=== PATIENT | female | born 1985 | race Caucasian/White ===

== ENCOUNTER 2016-04-26 08:00 | Emergency (ER) | payer OTHER ==
--- NOTE | ~2016-04-26 | CR181 ---
[facility] A Service of [facility] & [facility] RADIOLOGY TEXT RESULTS PATIENT: BRIONNA OLIVIA LOCATION: [facility] : 89 UNIT #: [id number] AGE: [address]: Kimberlyn Harry SEX: F ORDER DR: [id number] [id number] [facility]. [place], [place] [address] [id number] E MR#: [id number] Acc #: [id number] NAME: BRIONNA OLIVIA. : 1985 SEX: F STUDY DATE/TIME: 04/26/2016 7:32 UNIT: [facility] ROOM: STUDY DESCRIPTION: CR Lumbar Spine 2 or 3 Views Attending Physician: Kimberlyn Harry Pa-C Ordering Physician: Kimberlyn Harry Pa-C Primary Care Physician: No Primary Care Physician MEDICAL IMAGING REPORT This report is preliminary unless electronic signature is present EXAM Lumbar spine 3-view series INDICATIONS Low-back pain and left hip pain since this morning after falling down stairs. FINDINGS AP and lateral projections of the lumbar segment show good mineralization of both anterior and posterior elements. They are all anatomically normal without indication of fracture, dislocation, or malignant change of a sclerotic or lytic type. There is no congenital defect noted. The sacroiliac joints are normal. IMPRESSION Normal lumbar spine. Dictated by... Fidencio Petersen M.D. THIS IS AN ELECTRONICALLY VERIFIED REPORT Fidencio Petersen M.D. at 04/26/2016 4:12 PM FEL/di TD: 04/26/2016 13:26 JOB #: [id number] MEDICAL IMAGING REPORT COPY
--- NOTE | ~2016-04-26 | CR150 ---
[facility] A Service of [facility] & [facility] RADIOLOGY TEXT RESULTS PATIENT: BRIONNA OLIVIA LOCATION: [facility] : 89 UNIT #: [id number] AGE: [address]: Kimberlyn Harry SEX: F ORDER DR: [id number] [facility] [address] [facility]. [place], [place] [address] [id number] E MR#: [id number] Acc #: [id number] NAME: BRIONNA OLIVIA. : 1985 SEX: F STUDY DATE/TIME: 04/26/2016 7:32 UNIT: [facility] ROOM: STUDY DESCRIPTION: CR Hip Min 2 Views Lt Attending Physician: Kimberlyn Harry Pa-C Ordering Physician: Kimberlyn Harry Pa-C Primary Care Physician: Primary Care Physician No MEDICAL IMAGING REPORT This report is preliminary unless electronic signature is present EXAM Left hip 04/26/2016. [facility] HISTORY 30-year-old woman pain low back and left hip following a fall down stairs this morning. AP pelvis with frog-leg lateral view of the left hip demonstrates intact cortex throughout with no fracture. Sacroiliac joints are preserved and symmetrical. There is no symphysis separation. Mineralization is preserved. Hip joints are maintained. Soft tissues appear normal. IMPRESSION Negative left hip. The pelvis appears unremarkable. Dictated by... Jorge Gillette M.D. THIS IS AN ELECTRONICALLY VERIFIED REPORT Jorge Gillette M.D. at 04/26/2016 1:33 PM ADRIENNE/hansa TD: 04/26/2016 13:31 JOB #: [id number] MEDICAL IMAGING REPORT COPY
[~2016-04-26 08:00] MED LIST: AUGMENTIN PO; DOXYCYCLINE; FLEXERIL PO; KEFLEX500 MG; KEFLEX500 MG PO; KETOPROFEN PO; MACROBID100 MG PO; NO MEDICATIONS; PHENERGAN PO; PHENERGAN25 MG PO; PRENATAL VITAMI1 TA3 PO; PRENATAL1 TA1 PO; VICODIN 5/1 TAB 5/50 PO; ZOFRAN8 MG PO
== END 2016-04-26 08:54 | disposition home or self-care (01) ==
LOC: CED 08:00
DX: S39.012A Strain of muscle, fascia and tendon of lower back, initial encounter (principal); S70.02XA Contusion of left hip, initial encounter; F32.9 Major depressive disorder, single episode, unspecified; F17.210 Nicotine dependence, cigarettes, uncomplicated; Z88.2 Allergy status to sulfonamides; Z88.8 Allergy status to other drugs, medicaments and biological substances; W10.9XXA Fall (on) (from) unspecified stairs and steps, initial encounter; Y92.009 Unspecified place in unspecified non-institutional (private) residence as the place of occurrence of the external cause
CPT/HCPCS: 72100; 73502; 84703; 99284; J1885

== ENCOUNTER 2016-07-14 16:32 | Emergency (ER) | payer OTHER ==
--- NOTE | ~2016-07-14 | EKG ---
PATIENT: BRIONNA OLIVIA UNIT #: [id number] Ventricular Rate: 95 BPM Atrial Rate: 95 BPM P-R Interval: 134 ms QRS Duration: 64 ms Q-T Interval: 342 ms QTC Calculation(Bezet): 429 ms P [place]: 75 degrees Calculated R [place]: 72 degrees Calculated T [place]: 63 degrees Diagnosis Line: Normal sinus rhythm Diagnosis Line: Low voltage QRS Diagnosis Line: Borderline ECG Diagnosis Line: No previous ECGs available Diagnosis Line: Confirmed by ORION HARDY MD ([id number]) on Diagnosis Line: 07/15/2016 1:49:17 PM INTERPRETING MD: JB
[2016-07-14 17:17] LABS: BASOPHIL# 0.1 X10e3 (0-0.3); BASOPHIL% 0.6 % (0-2.5); EOSINOPHIL# 0.3 X10e3 (0-0.7); EOSINOPHIL% 2.7 % (0.0-7.0); HEMATOCRIT 41.6 % (35.0-45.0); HEMOGLOBIN 13.8 gm/dL (12.0-16.0); LYMPHOCYTE# 3.5 X10e3 (1.0-3.5); LYMPHOCYTE% 28.1 % (17.0-45.0); MEAN CELL VOLUME 86.3 FL (83-96); MEAN CORPUSCULAR HEMOGLOBIN 28.7 PG (28-34); MEAN CORPUSCULAR HGB CONC 33.2 g/dL (30-36); MEAN PLATELET VOLUME 8.2 FL (6.5-11.5); MONOCYTE# 0.7 X10e3 (0-1.0); MONOCYTE% 5.7 % (3.0-12.0); NEUTROPHIL# 7.8 X10e3 (1.5-7.1); NEUTROPHIL% 62.9 % (40-75); PLATELET COUNT 292 X10e3 (140-420); RED BLOOD COUNT 4.82 X10e (3.90-5.30); RED CELL DISTRIBUTION WIDTH 14.8 % (11.0-15.5); WHITE BLOOD COUNT 12.4 X10e3 (4.0-10.5)
[2016-07-14 17:20] LABS: DIFF IND NO
[2016-07-14 17:30] LABS: BILIRUBIN, DIRECT 0.1 mg/dL (0.0-0.2); BILIRUBIN,INDIRECT 0.4 mg/dL (0.0-0.9); BILIRUBIN,TOTAL 0.5 mg/dL (0.2-2.0); BUN/CREATININE RATIO 16.66; CALCIUM SERUM 9.2 mg/dL (8.4-10.2); CREATININE SERUM 0.6 mg/dL (0.6-1.4); GLOM FILT RATE Estimated 123.2 mL/min (>60); POTASSIUM 3.6 mmol/L (3.5-5.1); PROTEIN TOTAL SERUM 7.3 g/dL (6.0-8.3)
[2016-07-14 17:40] LABS: POC - CKMB <1.0 ng/mL (0.0-7.9); POC - TROPONIN <0.05 ng/mL (<=0.05)
[2016-07-14 18:00] LABS: URINE SOURCE CLEAN CATCH
[2016-07-14 18:14] LABS: URINE APPEARANCE CLOUDY; URINE BILIRUBIN NEG (NEG); URINE BLOOD NEG (NEG); URINE COLOR YELLOW; URINE GLUCOSE NEG (NEG); URINE KETONE NEG (NEG); URINE LEUKOCYTE ESTERASE NEG (NEG); URINE NITRATE NEG (NEG); URINE PH 7.5 (5-8); URINE PROTEIN NEG (NEG)
[2016-07-14 18:34] LABS: CULTURE INDICATED? NO
[2016-07-14 19:14] LABS: POC - CKMB <1.0 ng/mL (0.0-7.9); POC - TROPONIN <0.05 ng/mL (<=0.05)
== END 2016-07-14 20:18 | disposition home or self-care (01) ==
LOC: CED 16:32
PROVIDERS: Emergency Medicine
DX: R51 Headache (principal); Z79.899 Other long term (current) drug therapy
CPT/HCPCS: 36415; 80048; 80076; 81003; 82553; 84484; 84703; 85025; 93005; 96361; 96374; 96375; 99284; J0780; J1885; J2930

== ENCOUNTER 2016-07-27 22:39 | Emergency (ER) | payer OTHER ==
--- NOTE | ~2016-07-27 | CR142 ---
[facility] A Service of [facility] & [facility] RADIOLOGY TEXT RESULTS PATIENT: BRIONNA OLIVIA LOCATION: [facility] : 89 UNIT #: [id number] AGE: [address]: Lavelle Amaral SEX: F ORDER DR: [id number] [facility] [address] [facility]. [place], [place] [address] [id number] E MR#: [id number] Acc #: [id number] NAME: BRIONNA OLIVIA. : 1985 SEX: F STUDY DATE/TIME: 07/27/2016 22:54 UNIT: [facility] ROOM: STUDY DESCRIPTION: CR Hand Min 3 Views Rt Attending Physician: Lavelle Amaral P.A.-C. Ordering Physician: Lavelle Amaral P.A.-C. [facility] RE[facility] This report is preliminary unless electronic signature is present EXAM Right hand. INDICATIONS Pain after punching wall, 07/26/16. FINDINGS AP, lateral, and oblique projections of the hand show good mineralization with normal carpal, metacarpal, and phalangeal anatomy without indication of fracture, dislocation, or soft tissue radiopaque foreign body. IMPRESSION Normal right hand. Dictated by... Fidencio Petersen M.D. THIS IS AN ELECTRONICALLY VERIFIED REPORT Fidencio Petersen M.D. at 07/28/2016 2:12 AM MOE/donny TD: 07/27/2016 23:33 JOB #: [id number] MEDICAL IMAGING REPORT Page 1 of 1 COPY
== END 2016-07-27 23:41 | disposition home or self-care (01) ==
LOC: CED 22:39 → CFTX 22:39
DX: S60.221A Contusion of right hand, initial encounter (principal); F17.210 Nicotine dependence, cigarettes, uncomplicated; Z88.2 Allergy status to sulfonamides; Z88.8 Allergy status to other drugs, medicaments and biological substances; W22.8XXA Striking against or struck by other objects, initial encounter; Y92.009 Unspecified place in unspecified non-institutional (private) residence as the place of occurrence of the external cause
CPT/HCPCS: 73130; 99283

== ENCOUNTER 2016-08-06 23:33 | Emergency (ER) | payer OTHER | END 2016-08-07 01:10 | disposition home or self-care (01) | LOC: CED 23:33 | DX: S20.01XA Contusion of right breast, initial encounter (principal); G40.909 Epilepsy, unspecified, not intractable, without status epilepticus; Z98.51 Tubal ligation status; F17.200 Nicotine dependence, unspecified, uncomplicated; Z88.2 Allergy status to sulfonamides; Z88.8 Allergy status to other drugs, medicaments and biological substances; W22.8XXA Striking against or struck by other objects, initial encounter; Y92.009 Unspecified place in unspecified non-institutional (private) residence as the place of occurrence of the external cause | CPT/HCPCS: 99283 ==

== ENCOUNTER 2016-08-23 10:10 | Emergency (ER) | payer OTHER ==
--- NOTE | ~2016-08-23 | MR17 ---
[facility] A Service of [facility] & [facility] RADIOLOGY TEXT RESULTS PATIENT: BRIONNA OLIVIA LOCATION: [facility] : 89 UNIT #: [id number] AGE: [address]: Mohinder Boswell DO SEX: F ORDER DR: [id number] [facility] [address] [place], [place] [address] [id number] E MR#: [id number] Acc #: [id number] NAME: BRIONNA OLIVIA. : 1985 SEX: F STUDY DATE/TIME: 08/23/2016 13:11 UNIT: [facility] ROOM: STUDY DESCRIPTION: MR Brain WWo Contrast Attending Physician: Mohinder Boswell D.O. Ordering Physician: Mohinder Boswell D.O. [facility] This report is preliminary unless electronic signature is present. EXAM MRI of the brain with and without contrast dated 08/23/2016. COMPARISON CT head without contrast dated 04/03/2016. HISTORY Body aches and dizziness today. Severe migraine and disorientation. FINDINGS Multisequence, multiplanar imaging of the brain was obtained with and without contrast. GFR measured greater than 60. 14 mL of MultiHance was administered intravenously. No acute stroke, enhancing mass, mass effect, midline shift, or hydrocephalus. Vascular flow voids of the major cerebral arteries and dural venous sinuses are not occluded on these thicker slices. Bell-white junction is preserved. Basal ganglia, brainstem, and cerebellar hemispheres are unremarkable. Mild S-shaped nasal septal deviation is noted with minimal left ethmoid sinus mucosal thickening. Imaged orbits with the ocular structures and mastoids do not demonstrate any significant abnormality. Thin coronal T2 sequence through the hippocampal formations demonstrate normal shape, size, signal, and symmetry of the hippocampi. No evidence of congenital malformations. Postcontrast sequences do not demonstrate enhancing lesions. Thick slices through the sella with the pituitary gland, pineal region are unremarkable. Susceptibility artifact is noted in the right paramidline aspect at the level of C4, incompletely characterized on the current study as it is seen only in the sagittal T1 brain sequence, along the edge of the image. In the CT cervical spine from 01/31/2010, there is a linear hyperdensity along the right anterolateral aspect of C4-5 disc and adjacent vertebral bodies. It is likely the cause for susceptibility artifact on the current study after 7 years. IMPRESSION [facility] A Service of [facility] & [facility] RADIOLOGY TEXT RESULTS PATIENT: BRIONNA OLIVIA [id number] [birth year] UNIT #: [id number] AGE: [address]: Mohinder Boswell DO SEX: F ORDER DR: No demonstrable intracranial abnormality. Dictated by... Dedrick Jones M.D. THIS IS AN ELECTRONICALLY VERIFIED REPORT Dedrick Jones M.D. at 08/24/2016 1:15 PM CPR/tmw TD: 08/23/2016 15:13 JOB #: [id number] MRI CENTER REPORT Page 1 of 1 COPY
--- NOTE | ~2016-08-23 | EKG ---
PATIENT: BRIONNA OLIVIA UNIT #: [id number] Ventricular Rate: 76 BPM Atrial Rate: 76 BPM P-R Interval: 148 ms QRS Duration: 70 ms Q-T Interval: 402 ms QTC Calculation(Bezet): 452 ms P [place]: 46 degrees Calculated R [place]: 30 degrees Calculated T [place]: 31 degrees Diagnosis Line: Normal sinus rhythm with sinus arrhythmia Diagnosis Line: Low voltage QRS Diagnosis Line: Borderline ECG Diagnosis Line: When compared with ECG of 14-JUL-2016 16:38, Diagnosis Line: No significant change was found Diagnosis Line: Confirmed by CECI BLACK MD ([id number]) on Diagnosis Line: 08/24/2016 10:38:59 AM INTERPRETING MD: SOFIA CARVAJAL
[2016-08-23 11:40] LABS: BASOPHIL# 0.1 X10e3 (0-0.3); BASOPHIL% 1.1 % (0-2.5); EOSINOPHIL# 0.4 X10e3 (0-0.7); EOSINOPHIL% 3.8 % (0.0-7.0); HEMATOCRIT 43.5 % (35.0-45.0); HEMOGLOBIN 14.4 gm/dL (12.0-16.0); LYMPHOCYTE# 3.2 X10e3 (1.0-3.5); LYMPHOCYTE% 33.3 % (17.0-45.0); MEAN CELL VOLUME 86.7 FL (83-96); MEAN CORPUSCULAR HEMOGLOBIN 28.6 PG (28-34); MEAN PLATELET VOLUME 8.3 FL (6.5-11.5); MONOCYTE# 0.6 X10e3 (0-1.0); MONOCYTE% 5.7 % (3.0-12.0); NEUTROPHIL# 5.4 X10e3 (1.5-7.1); NEUTROPHIL% 56.1 % (40-75); PLATELET COUNT 323 X10e3 (140-420); RED BLOOD COUNT 5.02 X10e (3.90-5.30); RED CELL DISTRIBUTION WIDTH 15.5 % (11.0-15.5); WHITE BLOOD COUNT 9.7 X10e3 (4.0-10.5)
[2016-08-23 11:50] LABS: DIFF IND NO
[2016-08-23 12:07] LABS: ALBUMIN SERUM 4.2 g/dL (3.5-5.0); ALKALINE PHOSPHATASE 59 U/L (32-92); ALT (SGPT) 16 U/L (10-40); AST (SGOT) 18 U/L (10-42); BILIRUBIN, DIRECT 0.1 mg/dL (0.0-0.2); BILIRUBIN,INDIRECT 0.4 mg/dL (0.0-0.9); BILIRUBIN,TOTAL 0.5 mg/dL (0.2-2.0); BLOOD UREA NITROGEN 8 mg/dL (9-23); BUN/CREATININE RATIO 11.42; CALCIUM SERUM 8.9 mg/dL (8.4-10.2); CARBON DIOXIDE 25 mmol/L (22-31); CHLORIDE 107 mmol/L (100-111); CPK (CREATINE PHOSPHOKINASE) 76 IU/L (26-140); CREATININE SERUM 0.7 mg/dL (0.6-1.4); GLOM FILT RATE Estimated 117.1 mL/min (>60); GLUCOSE FASTING 90 mg/dL (70-110); POTASSIUM 4.3 mmol/L (3.5-5.1); PROTEIN TOTAL SERUM 7.4 g/dL (6.0-8.3); SODIUM 138 mmol/L (135-145)
[2016-08-23 12:08] LABS: ALCOHOL BLOOD <5 mg/dL (0)
[2016-08-23 12:28] LABS: URINE SOURCE CLEAN CATCH
[2016-08-23 12:35] LABS: URINE APPEARANCE CLEAR; URINE BILIRUBIN NEG (NEG); URINE BLOOD NEG (NEG); URINE COLOR YELLOW; URINE GLUCOSE NEG (NEG); URINE KETONE NEG (NEG); URINE LEUKOCYTE ESTERASE NEG (NEG); URINE NITRATE NEG (NEG); URINE PH 5.5 (5-8); URINE PROTEIN NEG (NEG); URINE SPECIFIC GRAVITY 1.017 (1.003-1.035); URINE UROBILINOGEN 0.2 MG/DL (NEG)
[2016-08-23 12:39] LABS: CULTURE INDICATED? NO
[2016-08-23 12:51] LABS: AMPHETAMINE NEG (NEG); BARBITURATES NEG (NEG); BENZODIAZEPINES NEG (NEG); COCAINE NEG (NEG); MARIJUANA NEG (NEG); OPIATES NEG (NEG); TRICYCLIC ANTIDEPRESSANTS POS (NEG); U METHADONE NEG (NEG)
== END 2016-08-23 17:06 | disposition home or self-care (01) ==
LOC: CED 10:10
PROVIDERS: Emergency Medicine
DX: R51 Headache (principal); T67.5XXA Heat exhaustion, unspecified, initial encounter; F17.200 Nicotine dependence, unspecified, uncomplicated; F32.9 Major depressive disorder, single episode, unspecified; F41.9 Anxiety disorder, unspecified; Z88.2 Allergy status to sulfonamides; Z88.8 Allergy status to other drugs, medicaments and biological substances
CPT/HCPCS: 36415; 70553; 80048; 80076; 80307; 81003; 82550; 82947; 84703; 85025; 93005; 96360; 99284; A9577; G0480; J1200; J2765

== ENCOUNTER 2016-09-20 23:11 | Emergency (ER) | payer OTHER ==
[~2016-09-20] VITALS: Ht 157.5 cm; Wt 63.5 kg
== END 2016-09-21 01:30 | disposition left against medical advice (07) ==
LOC: CED 23:11
DX: Z53.21 Procedure and treatment not carried out due to patient leaving prior to being seen by health care provider (principal)